=== PATIENT | female | born 1985 | race Caucasian/White ===

== ENCOUNTER 2023-11-10 18:37 | Emergency (ER) | payer SELFPAY ==
[~2023-11-10] VITALS: Ht 170.2 cm; Wt 91.0 kg
[2023-11-10 18:47] VITALS: O2SAT 97
[2023-11-10 19:36] LABS: BASOPHILS % 0.8 % (0.0-2.0); EOSINOPHILS % 4.3 % (0.0-5.0); HEMATOCRIT. 39.4 % (36.0-48.0); HEMOGLOBIN. 13.1 g/dL (12.0-16.0); LYMPHOCYTES % 18.5 % (20.0-50.0); MEAN CORPUSCULAR HGB CONC 33.2 g/dL (31.0-37.0); MEAN CORPUSCULAR VOLUME 90.4 fL (81.0-99.0); MEAN PLATELET VOLUME 9.3 fl (7.4-10.4); MONOCYTES % 11.7 % (2.0-8.0); NEUTROPHILS % 64.7 % (40.0-76.0); PLATELET 388 x1000/uL (130-400); RED BLOOD CELL COUNT 4.36 mill/uL (4.2-5.4); RED CELL DISTRIBUTION WIDTH 13.5 % (11.6-14.6)
[2023-11-10 19:44] LABS: CHLORIDE 105 mEq/L (98-107); POTASSIUM 3.6 mEq/L (3.5-5.1); SODIUM 136 mEq/L (136-145)
[2023-11-10 19:45] LABS: CALCIUM 9.3 mg/dL (8.7-10.4); CARBON DIOXIDE 23 mEq/L (21-32); PROTHROMBIN TIME 11.3 sec (9.6-11.0)
[2023-11-10 19:50] LABS: CREATININE 0.9 mg/dL (0.6-1.0); GLUCOSE 116 mg/dL (70-105)
[2023-11-10 19:54] LABS: TROPONIN I HIGH SENSITIVITY < 4 ng/L (3.0-34); UREA NITROGEN BLOOD < 5 mg/dL (9-23)
[2023-11-10 20:31] LABS: HCG SCREEN NEGATIVE
[2023-11-10] MEDS ORDERED: PHEN51CR24 TP (23:13)
[2023-11-10 23:29] VITALS: BP 95/80; PULSE 82; RESP 16; TEMP 98
== END 2023-11-10 23:32 | disposition home or self-care (01) ==
LOC: ER 18:51
DX: K64.4 Residual hemorrhoidal skin tags (principal); K92.2 Gastrointestinal hemorrhage, unspecified; Z98.890 Other specified postprocedural states
CPT/HCPCS: 36415; 71045; 74176; 80048; 84484; 84703; 85025; 86850; 86900; 93005; 99285